=== PATIENT | female | born 1990 | race Two or more races ===

== ENCOUNTER 2025-01-27 14:13 | Emergency (ER) | payer OTHER ==
[2025-01-27 14:18] VITALS: BP 129/83; PULSE 76; RESP 20; TEMP 98.2; BMI 16.6
[2025-01-27 15:02] LABS: URINE APPEARANCE CLEAR; URINE BILIRUBIN NEGATIVE (NEGATIVE); URINE COLOR YELLOW; URINE GLUCOSE (UA) NEGATIVE (NEGATIVE); URINE KETONE NEGATIVE (NEGATIVE); URINE LEUK ESTERASE NEGATIVE (NEGATIVE); URINE NITRITE NEGATIVE (NEGATIVE); URINE PROTEIN NEGATIVE (NEGATIVE); URINE UROBILINOGEN 0.2 mg/dL (0.2-1.0)
[2025-01-27 15:05] LABS: HCG,QUALITATIVE URINE Negative
[2025-01-27] MEDS ORDERED: ONDANSETRON 4 MG/2 ML VIAL ONE (15:06)
[2025-01-27 15:11] LABS: ABSOLUTE IMMATURE GRANULOCYTES 0.05 x10^3/uL (0.0-0.031); BASOPHILS # 0.04 x10^3/uL (0.01-0.08); EOSINOPHIL % 1.7 % (0.7-5.8); EOSINOPHILS # 0.13 x10^3/uL (0.04-0.36); MCHC 33.1 g/dl (32.2-35.5); MEAN CELL VOLUME 86.5 fl (79.4-94.8); MEAN PLT VOLUME 9.4 fl (9.4-12.3); MONOCYTE # 0.53 x10^3/uL (0.24-0.86); MONOCYTE % 7.1 % (4.7-12.5); RDW 13.6 % (12.1-16.8)
[2025-01-27] MEDS: SODIUM CHLORIDE 1,000 ML IV STA (15:17)
[2025-01-27] MEDS: ACETAMINOPHEN 1000 MG/100 ML BAG IVPB ONE (15:17)
[2025-01-27] MEDS: ONDANSETRON 4 MG/2 ML VIAL IVPUSH ONE (15:18)
[2025-01-27 15:41] LABS: CO2 26.0 mmol/L (21-32); GLUCOSE,RANDOM 92.0 mg/dL (74-106)
[2025-01-27 15:44] LABS: CREATININE 0.7 mg/dL (0.55-1.3); SGOT/AST 16.0 U/L (15-37); SGPT/ALT 27.0 U/L (13-61)
[2025-01-27 15:46] LABS: TOT PROT 7.1 g/dl (6.4-8.2)
[2025-01-27 15:47] LABS: ALK PHOS 55.0 U/L (45-117)
[2025-01-27 18:00] LABS: HIV INTERPRETATION NEGATIVE (NEGATIVE)
[2025-01-27 18:01] LABS: HCV DIAGNOSTIC IN-HOUSE W/RFLX NON-REACTIVE (NONREACTIVE)
== END 2025-01-27 17:35 | disposition home or self-care (01) ==
LOC: JER 14:13
PROC: 3E033GC Introduction of Other Therapeutic Substance into Peripheral Vein, Percutaneous Approach (ICD-10-PCS; principal; 2025-01-27)
PROC: 3E033GC Introduction of Other Therapeutic Substance into Peripheral Vein, Percutaneous Approach (ICD-10-PCS; 2025-01-27)
PROC: 3E0337Z Introduction of Electrolytic and Water Balance Substance into Peripheral Vein, Percutaneous Approach (ICD-10-PCS; 2025-01-27)
DX: N83.292 Other ovarian cyst, left side (principal); R10.32 Left lower quadrant pain
CPT/HCPCS: 36415; 76830-TC; 80053; 81003; 83690; 84703; 85025; 86803; 87086; 87389; 99285-25

== ENCOUNTER 2025-03-12 08:01 | Emergency (ER) | payer OTHER ==
[2025-03-12 08:09] VITALS: TEMP 98.2; BMI 24.8
[2025-03-12] MEDS ORDERED: KETOROLAC TROMETHAMINE 30 MG/1 ML VIAL ONE (08:34)
[2025-03-12] MEDS ORDERED: ACETAMINOPHEN 500 MG TABLET (FP) ONE (08:34)
[2025-03-12] MEDS: KETOROLAC TROMETHAMINE 30 MG/1 ML VIAL IM ONE (08:49)
[2025-03-12] MEDS: ACETAMINOPHEN 500 MG TABLET (FP) PO ONE (08:50)
[2025-03-12 10:43] VITALS: BP 128/83; PULSE 86; RESP 16
[2025-03-12 12:03] LABS: HIV INTERPRETATION NEGATIVE (NEGATIVE)
[2025-03-12 12:04] LABS: HCV DIAGNOSTIC IN-HOUSE W/RFLX NON-REACTIVE (NONREACTIVE)
== END 2025-03-12 11:03 | disposition home or self-care (01) ==
LOC: JER 08:01
PROC: 2W3TX1Z Immobilization of Left Foot using Splint (ICD-10-PCS; principal; 2025-03-12)
PROC: 3E0233Z Introduction of Anti-inflammatory into Muscle, Percutaneous Approach (ICD-10-PCS; 2025-03-12)
DX: S92.312A Displaced fracture of first metatarsal bone, left foot, initial encounter for closed fracture (principal); S92.322A Displaced fracture of second metatarsal bone, left foot, initial encounter for closed fracture; S92.332A Displaced fracture of third metatarsal bone, left foot, initial encounter for closed fracture; S92.342A Displaced fracture of fourth metatarsal bone, left foot, initial encounter for closed fracture; R00.0 Tachycardia, unspecified; W18.30XA Fall on same level, unspecified, initial encounter; Y93.01 Activity, walking, marching and hiking
CPT/HCPCS: 36415; 73590-TC-LT-FY; 73610-TC-LT-FY; 73630-TC-LT; 73700-TC-RT; 86803; 87389; 99285-25